=== PATIENT | male | born 1955 | race Caucasian/White ===

== ENCOUNTER 2016-09-28 12:59 | Inpatient (IN) | payer OTHER ==
[2016-09-28] VITALS (31 sets, daily range): BP systolic 143–186; RESP 13–29; TEMP 98.4–99.2; Ht 180.3 cm; Wt 89.4 kg
[~2016-09-28] VITALS: Ht 180.3 cm; Wt 89.4 kg
[2016-09-28] MEDS ORDERED: TUSSIONEX SUSP UDC ONE (13:29)
[2016-09-28] MEDS ORDERED: ALU/MAG/SIM 30 ML UDC PO PRN (15:00)
[2016-09-28] MEDS ORDERED: PROMETHAZINE 25 MG/ML VIAL IV PRN (15:00)
[2016-09-28] MEDS ORDERED: ACETAMINOPHEN 325 MG TAB PO PRN (15:00)
[2016-09-28] MEDS ORDERED: ALPRAZOLAM 0.25 MG TAB PO PRN (15:00)
[2016-09-28] MEDS ORDERED: LACTULOSE SOLN 20GM/30ML UDC PO PRN (15:00)
[2016-09-28] MEDS ORDERED: SODIUM CHLORIDE 0.9% 1,000 ML IV SCH (15:00)
[2016-09-28] MEDS ORDERED: GLUCAGON 1 MG VIAL IM PRN (15:00)
[2016-09-28] MEDS ORDERED: DUONEB INH PRN (15:00)
[2016-09-28] MEDS ORDERED: SALINE FLUSH 10 ML FLUSH PRN (15:00)
[2016-09-28] MEDS ORDERED: DILAUDID 1 MG/ML AMP IV PRN (15:00)
[2016-09-28] MEDS ORDERED: DEXTROSE 50% SYRINGE 50 ML IV PRN (15:00)
[2016-09-28] MEDS ORDERED: ONDANSETRON 4 MG VIAL IV PUSH PRN (15:00)
[2016-09-28] MEDS ORDERED: GUAIFEN/DM 10 ML UDC PO PRN (15:25)
[2016-09-28] MEDS: PANTOPRAZOLE 40 MG VIAL IV SCH (16:42)
[2016-09-28] MEDS ORDERED: PHARMACY TO DOSE ZOSYN IV SCH (16:45)
[2016-09-28] MEDS ORDERED: PHARMACY TO DOSE MERREM IV SCH (16:45)
[2016-09-28] MEDS ORDERED: OPTIRAY 350 100 ML VIAL HMH IV ONE (17:14)
[2016-09-28] MEDS ORDERED: PHARMACY TO DOSE VANCOMYCIN IV SCH (18:15)
[2016-09-28] MEDS: SALINE FLUSH 10 ML FLUSH SCH (20:00)
[2016-09-28] MEDS: MIRTAZAPINE 15 MG TAB PO SCH (21:08)
[2016-09-28] MEDS ORDERED: VANCOMYCIN 1,750 MG in SODIUM CHLORIDE 0.9% 500 ML IV ONE (22:00)
[2016-09-28] MEDS: Meropenem 500 MG in SODIUM CHLORIDE 0.9% 100 ML IV SCH (23:08)
[2016-09-29] VITALS (30 sets, daily range): BP systolic 148–191; RESP 12–28; TEMP 97.8–98.7
[2016-09-29] MEDS: SILVER SULF 1% CR 50 GM TOPICAL SCH ×2 (00:10→08:21)
[2016-09-29] MEDS: SODIUM CHLORIDE 0.9% FLUSH BAG 500 ML IV SCH (06:17)
[2016-09-29] MEDS: SALINE FLUSH 10 ML FLUSH SCH ×2 (07:50→23:30)
[2016-09-29] MEDS: PANTOPRAZOLE 40 MG VIAL IV SCH (08:21)
[2016-09-29] MEDS: MIRTAZAPINE 15 MG TAB PO SCH (20:02)
[2016-09-29] MEDS: Meropenem 500 MG in SODIUM CHLORIDE 0.9% 100 ML IV SCH (23:08)
[2016-09-29] MEDS ORDERED: MISSING DOSE XX ONE (23:30)
[2016-09-30 03:25] VITALS: BP_SYST 157; RESP 20; TEMP 98.2
[2016-09-30] MEDS: SODIUM CHLORIDE 0.9% FLUSH BAG 500 ML IV SCH (06:35)
[2016-09-30 07:39] VITALS: BP_SYST 168; RESP 22; TEMP 98.5
[2016-09-30] MEDS: SALINE FLUSH 10 ML FLUSH SCH ×2 (09:10→21:21)
[2016-09-30] MEDS: PANTOPRAZOLE 40 MG VIAL IV SCH (09:13)
[2016-09-30] MEDS: SILVER SULF 1% CR 50 GM TOPICAL SCH ×2 (10:50→21:00)
[2016-09-30 11:15] VITALS: BP_SYST 180; RESP 22; TEMP 98.2
[2016-09-30] MEDS ORDERED: PHARMACY TO DOSE LEVAQUIN IV SCH (11:20)
[2016-09-30] MEDS ORDERED: LEVOFLOXACIN 750 MG/150 ML 150 ML IV ONE (12:00)
[2016-09-30] MEDS ORDERED: CEFAZOLIN 1,000 MG in DEXTROSE 5% 50 ML IV ONE (14:10)
[2016-09-30 15:35] VITALS: BP_SYST 161; RESP 20; TEMP 98.5
[2016-09-30 19:05] VITALS: BP_SYST 154; RESP 20; TEMP 99.7
[2016-09-30] MEDS: MIRTAZAPINE 15 MG TAB PO SCH (21:21)
[2016-09-30 22:57] VITALS: BP_SYST 165; RESP 20; TEMP 98.4
[2016-10-01] VITALS (16 sets, daily range): BP systolic 138–218; RESP 16–20; TEMP 97.3–98.8
[2016-10-01] MEDS ORDERED: CEFAZOLIN 1,000 MG in DEXTROSE 5% 50 ML IV ONE (03:30)
[2016-10-01] MEDS: SODIUM CHLORIDE 0.9% FLUSH BAG 500 ML IV SCH (06:17)
[2016-10-01] MEDS: PANTOPRAZOLE 40 MG TAB PO SCH (06:56)
[2016-10-01] MEDS: SALINE FLUSH 10 ML FLUSH SCH ×2 (07:59→20:00)
[2016-10-01] MEDS ORDERED: DEXTROSE 5% SALINE 0.45% 1,000 ML IV SCH (10:10)
[2016-10-01] MEDS ORDERED: ACETAMINOPHEN 325 MG TAB PO PRN (10:10)
[2016-10-01] MEDS ORDERED: SALINE FLUSH 10 ML FLUSH PRN (10:10)
[2016-10-01] MEDS: SILVER SULF 1% CR 50 GM TOPICAL SCH ×2 (11:06→17:35)
[2016-10-01] MEDS ORDERED: VISIPAQUE IV ONE (11:10)
[2016-10-01] MEDS ORDERED: LIDOCAINE 1% 20ML ONE (16:17)
[2016-10-01] MEDS ORDERED: PROTAMINE 50 MG/5 ML VIAL IV ONE (16:17)
[2016-10-01] MEDS ORDERED: FENTANYL 100 MCG/2 ML AMP ONE (16:17)
[2016-10-01] MEDS ORDERED: MIDAZOLAM 2 MG/2 ML INJ ONE (16:17)
[2016-10-01] MEDS ORDERED: hePARIN 1,000 UNITS/ML (PORCINE) 10 ML ONE (16:17)
[2016-10-01] MEDS ORDERED: MISSING DOSE XX ONE (17:45)
[2016-10-01] MEDS ORDERED: VANCOMYCIN 1,000 MG in SODIUM CHLORIDE 0.9% 250 ML IV ONE (18:00)
[2016-10-01] MEDS: MIRTAZAPINE 15 MG TAB PO SCH (22:17)
[2016-10-02 04:18] VITALS: BP_SYST 162; RESP 20; TEMP 98.3
[2016-10-02] MEDS ORDERED: MISSING DOSE XX ONE (04:35)
[2016-10-02] MEDS: SODIUM CHLORIDE 0.9% FLUSH BAG 500 ML IV SCH (06:47)
[2016-10-02] MEDS: PANTOPRAZOLE 40 MG TAB PO SCH (06:47)
[2016-10-02 07:25] VITALS: BP_SYST 188; RESP 20; TEMP 99
[2016-10-02] MEDS: SALINE FLUSH 10 ML FLUSH SCH ×2 (08:26→21:51)
[2016-10-02] MEDS ORDERED: LEVOFLOXACIN 500 MG/100 ML 100 ML IV SCH (09:00)
[2016-10-02 11:10] VITALS: BP_SYST 134; RESP 20; TEMP 98.4
[2016-10-02] MEDS: SILVER SULF 1% CR 50 GM TOPICAL SCH (12:56)
[2016-10-02 15:19] VITALS: BP_SYST 180; RESP 20; TEMP 99.3
[2016-10-02 19:12] VITALS: BP_SYST 142; RESP 18; TEMP 99.5
[2016-10-02] MEDS: MIRTAZAPINE 15 MG TAB PO SCH (21:50)
[2016-10-03 04:20] VITALS: BP_SYST 165; RESP 20; TEMP 98.4
[2016-10-03] MEDS: SODIUM CHLORIDE 0.9% FLUSH BAG 500 ML IV SCH (04:47)
[2016-10-03] MEDS: SILVER SULF 1% CR 50 GM TOPICAL SCH ×2 (05:49→09:00)
[2016-10-03] MEDS: PANTOPRAZOLE 40 MG TAB PO SCH (05:55)
[2016-10-03 07:26] VITALS: BP_SYST 184; RESP 20; TEMP 98.3
[2016-10-03] MEDS: SALINE FLUSH 10 ML FLUSH SCH (08:55)
[2016-10-03 11:30] VITALS: BP_SYST 173; RESP 20; TEMP 98.6
[2016-10-03 13:18] VITALS: BP_SYST 173; RESP 20; TEMP 98.6
== END 2016-10-03 13:42 | disposition home or self-care (01) | DRG 981 ==
LOC: ENRESERVTM → ENRESERVDT → ER 12:59 → EMR 14:57 → ENPENDDIS 14:57 → ICU 16:20 → 4NT 09-29 16:27
PROVIDERS: ADMIT Internal Medicine Nephrology; ATTEND Internal Medicine Nephrology
PROC: 047R3ZZ Dilation of Right Posterior Tibial Artery, Percutaneous Approach (ICD-10-PCS; principal; 2016-10-01)
PROC: 047M3ZZ Dilation of Right Popliteal Artery, Percutaneous Approach (ICD-10-PCS; 2016-10-01)
CPT/HCPCS: 36415; 36430; 37228; 70491; 71010; 71260; 73718; 75630; 80053; 80202; 82550; 82553; 82947; 83605; 83880; 84484; 85025; 86850; 86900; 86901; 86923; 86945; 87040; 87804; 93005; 93923; 94799; 99232; 99291

== ENCOUNTER 2016-10-11 12:36 | Inpatient (IN) | payer OTHER ==
[2016-10-11] VITALS (7 sets, daily range): BP systolic 115–161; RESP 18–20; TEMP 97.4–98.4
[~2016-10-11] VITALS: Ht 180.3 cm; Wt 79.3 kg
[~2016-10-11 12:36] MED LIST: BACITRACIN 50,000 UNITS INJ IRRIG ONE; FENTANYL 100 MCG/2 ML AMP IV ONE; LIDOCAINE 2% SYR 5 ML IV ONE; ONDANSETRON 4 MG VIAL IV PUSH ONE; PROPOFOL 20 ML PER ML IV ONE; ROCURONIUM 50 MG VIAL IV ONE; SUCCINYLCHOLINE 20 MG/ML VL IV ONE
[2016-10-11] MEDS ORDERED: DEXTROSE 50% SYRINGE 50 ML IV PRN ×2 (13:10→13:25)
[2016-10-11] MEDS ORDERED: ACETAMINOPHEN 325 MG TAB PO PRN (13:10)
[2016-10-11] MEDS ORDERED: GLUCAGON 1 MG VIAL IM PRN ×2 (13:10→13:25)
[2016-10-11] MEDS: PIPERACIL/TAZO 2.25GM/50ML 50 ML IV SCH ×2 (14:35→22:01)
[2016-10-11] MEDS ORDERED: SODIUM CHLORIDE 0.9% 1,000 ML IV SCH ×2 (14:40→20:15)
[2016-10-11] MEDS ORDERED: LIDOCAINE 1% BUFFERED 1 ML SYR INTRADERM PRN (20:15)
[2016-10-11] MEDS ORDERED: MIDAZOLAM 2 MG/2 ML INJ IV ONE (20:15)
[2016-10-11] MEDS: MIRTAZAPINE 15 MG TAB PO SCH (22:01)
[2016-10-12] VITALS (22 sets, daily range): BP systolic 126–204; RESP 13–23; TEMP 97.5–98.3; Ht 180.3 cm; Wt 79.3 kg
[2016-10-12] MEDS: ONDANSETRON 4 MG VIAL IV PUSH PRN (05:53)
[2016-10-12] MEDS ORDERED: MORPHINE 4 MG/ML SYR IV PRN (07:15)
[2016-10-12] MEDS ORDERED: OXYCODONE 5 MG TAB PO PRN (07:15)
[2016-10-12] MEDS ORDERED: MEPERIDINE 25 MG/ML IV PRN (07:15)
[2016-10-12] MEDS ORDERED: ONDANSETRON 4 MG VIAL IV PRN (07:15)
[2016-10-12] MEDS ORDERED: MORPHINE 2 MG/ML SYR IV PRN (07:15)
[2016-10-12] MEDS: PIPERACIL/TAZO 2.25GM/50ML 50 ML IV SCH ×2 (08:00→20:41)
[2016-10-12] MEDS: DILAUDID 1 MG/ML AMP IV PRN ×5 (12:26→19:18)
[2016-10-12] MEDS: Hydrocodone/APAP 10/325 MG TAB PO PRN (20:42)
[2016-10-12] MEDS: MIRTAZAPINE 15 MG TAB PO SCH (20:43)
[2016-10-13] VITALS (9 sets, daily range): BP systolic 147–184; RESP 16–18; TEMP 97.6–98.6
[2016-10-13] MEDS: DILAUDID 1 MG/ML AMP IV PRN ×4 (01:33→23:46)
[2016-10-13] MEDS: SODIUM CHLORIDE 0.45% 1,000 ML IV SCH ×2 (01:38→16:12)
[2016-10-13] MEDS: Hydrocodone/APAP 10/325 MG TAB PO PRN ×3 (03:06→22:38)
[2016-10-13] MEDS: PIPERACIL/TAZO 2.25GM/50ML 50 ML IV SCH ×2 (09:05→20:54)
[2016-10-13] MEDS ORDERED: CHLORASEPTIC 180 ML BTL PO PRN (09:10)
[2016-10-13] MEDS: NYSTATIN SUSP FOR CPD 120 ML, DIPHENHYDRAMINE (FOR COMPOUND) 120 ML, HYDROCORT SOD SUC ... SWISH.SWAL SCH ×6 (18:44→20:55)
[2016-10-13] MEDS: MIRTAZAPINE 15 MG TAB PO SCH (20:53)
[2016-10-14] VITALS (10 sets, daily range): BP systolic 134–182; RESP 16–20; TEMP 97.4–98.8
[2016-10-14] MEDS: DILAUDID 1 MG/ML AMP IV PRN ×5 (02:51→22:34)
[2016-10-14] MEDS: SODIUM CHLORIDE 0.45% 1,000 ML IV SCH (05:45)
[2016-10-14] MEDS: ONDANSETRON 4 MG VIAL IV PUSH PRN (07:05)
[2016-10-14] MEDS: PIPERACIL/TAZO 2.25GM/50ML 50 ML IV SCH ×2 (08:23→20:22)
[2016-10-14] MEDS: NYSTATIN SUSP FOR CPD 120 ML, DIPHENHYDRAMINE (FOR COMPOUND) 120 ML, HYDROCORT SOD SUC ... SWISH.SWAL SCH ×12 (08:24→20:23)
[2016-10-14] MEDS: amLODIPine 10 MG TAB PO SCH (08:49)
[2016-10-14] MEDS: Hydrocodone/APAP 10/325 MG TAB PO PRN ×2 (10:15→23:41)
[2016-10-14] MEDS ORDERED: MISSING DOSE XX ONE (10:15)
[2016-10-14] MEDS: CYCLOBENZAPRINE 10 MG TAB PO PRN ×2 (10:38→20:31)
[2016-10-14] MEDS: MIRTAZAPINE 15 MG TAB PO SCH (20:22)
[2016-10-15] VITALS (7 sets, daily range): BP systolic 154–173; RESP 16–20; TEMP 98.1–98.4
[2016-10-15] MEDS: DILAUDID 1 MG/ML AMP IV PRN (02:28)
[2016-10-15] MEDS ORDERED: MISSING DOSE XX ONE (03:25)
[2016-10-15] MEDS: PIPERACIL/TAZO 2.25GM/50ML 50 ML IV SCH ×2 (09:32→20:22)
[2016-10-15] MEDS: NYSTATIN SUSP FOR CPD 120 ML, DIPHENHYDRAMINE (FOR COMPOUND) 120 ML, HYDROCORT SOD SUC ... SWISH.SWAL SCH ×12 (09:33→20:22)
[2016-10-15] MEDS: amLODIPine 10 MG TAB PO SCH (09:33)
[2016-10-15] MEDS: MIRTAZAPINE 15 MG TAB PO SCH (20:21)
[2016-10-16] VITALS (9 sets, daily range): BP systolic 164–188; RESP 16–20; TEMP 97.7–98.3
[2016-10-16] MEDS: DILAUDID 1 MG/ML AMP IV PRN (02:21)
[2016-10-16] MEDS: ONDANSETRON 4 MG VIAL IV PUSH PRN (02:24)
[2016-10-16] MEDS: NYSTATIN SUSP FOR CPD 120 ML, DIPHENHYDRAMINE (FOR COMPOUND) 120 ML, HYDROCORT SOD SUC ... SWISH.SWAL SCH ×15 (09:00→20:56)
[2016-10-16] MEDS: amLODIPine 10 MG TAB PO SCH (13:08)
[2016-10-16] MEDS: PIPERACIL/TAZO 2.25GM/50ML 50 ML IV SCH ×2 (13:08→20:46)
[2016-10-16] MEDS: MIRTAZAPINE 15 MG TAB PO SCH (20:56)
[2016-10-17] VITALS (7 sets, daily range): BP systolic 143–177; RESP 16; TEMP 97.7–98.2
[2016-10-17] MEDS: DILAUDID 1 MG/ML AMP IV PRN ×2 (00:35→06:29)
[2016-10-17] MEDS: NYSTATIN SUSP FOR CPD 120 ML, DIPHENHYDRAMINE (FOR COMPOUND) 120 ML, HYDROCORT SOD SUC ... SWISH.SWAL SCH ×12 (07:44→20:44)
[2016-10-17] MEDS: PIPERACIL/TAZO 2.25GM/50ML 50 ML IV SCH ×2 (07:44→20:43)
[2016-10-17] MEDS: amLODIPine 10 MG TAB PO SCH (07:45)
[2016-10-17] MEDS ORDERED: MISSING DOSE XX ONE ×2 (07:55→22:45)
[2016-10-17] MEDS: MIRTAZAPINE 15 MG TAB PO SCH (20:44)
[2016-10-17] MEDS ORDERED: SALINE FLUSH 10 ML FLUSH PRN (22:45)
[2016-10-18] MEDS: DILAUDID 1 MG/ML AMP IV PRN ×2 (01:03→06:19)
[2016-10-18 04:15] VITALS: BP_SYST 171; RESP 18; TEMP 98.3
[2016-10-18] MEDS ORDERED: SODIUM CHLORIDE 0.9% FLUSH BAG 500 ML IV SCH (06:00)
[2016-10-18] MEDS ORDERED: SALINE FLUSH 10 ML FLUSH SCH (08:00)
[2016-10-18 08:28] VITALS: BP_SYST 151; RESP 15; TEMP 98.1
[2016-10-18] MEDS: amLODIPine 10 MG TAB PO SCH (08:35)
[2016-10-18] MEDS: NYSTATIN SUSP FOR CPD 120 ML, DIPHENHYDRAMINE (FOR COMPOUND) 120 ML, HYDROCORT SOD SUC ... SWISH.SWAL SCH ×3 (08:35)
[2016-10-18] MEDS: PIPERACIL/TAZO 2.25GM/50ML 50 ML IV SCH (08:36)
[2016-10-18] MEDS: ONDANSETRON 4 MG VIAL IV PUSH PRN (09:45)
[2016-10-18] MEDS ORDERED: ALPRAZOLAM 0.25 MG TAB PO PRN (09:50)
[2016-10-18 10:19] VITALS: BP_SYST 151; RESP 15; TEMP 98.1
[2016-10-18 11:34] VITALS: BP_SYST 155; RESP 15; TEMP 98.1
== END 2016-10-18 11:41 | DRG 239 ==
LOC: ENPENDDIS 12:36 → 5THE 12:36 → EDSTATUS 10-12 07:15
PROVIDERS: ADMIT Internal Medicine Nephrology; ATTEND Internal Medicine Nephrology
PROC: 5A1D60Z (ICD-10-PCS; 2016-10-12)
PROC: 0Y6H0Z2 Detachment at Right Lower Leg, Mid, Open Approach (ICD-10-PCS; principal; 2016-10-12 10:27)
DX: E11.52 Type 2 diabetes mellitus with diabetic peripheral angiopathy with gangrene (principal); N18.6 End stage renal disease; I12.0 Hypertensive chronic kidney disease with stage 5 chronic kidney disease or end stage renal disease; D62 Acute posthemorrhagic anemia; E11.22 Type 2 diabetes mellitus with diabetic chronic kidney disease; Z99.2 Dependence on renal dialysis; Z87.891 Personal history of nicotine dependence; F32.9 Major depressive disorder, single episode, unspecified; E78.5 Hyperlipidemia, unspecified; I25.10 Atherosclerotic heart disease of native coronary artery without angina pectoris; J02.9 Acute pharyngitis, unspecified; G25.81 Restless legs syndrome; Z79.82 Long term (current) use of aspirin; Z89.512 Acquired absence of left leg below knee
CPT/HCPCS: 36430; 80053; 82947; 83540; 84466; 85014; 85018; 85025; 85610; 86850; 86900; 86901; 86923; 88307; 88311; 94799